=== PATIENT | male | born 1960 | race Caucasian/White ===

== ENCOUNTER 2022-03-28 16:37 | Inpatient (IN) | payer MEDICARE, OTHER ==
[2022-03-28] MEDS ORDERED: Morphine 4 MG/ML VIAL ONE (17:13)
[2022-03-28] MEDS ORDERED: Ondansetron PF 4 MG/2 ML Vial ONE (17:13)
[2022-03-28] MEDS ORDERED: Fentanyl 100 MCG/2 ML VIAL ONE (17:48)
[2022-03-28 17:54] LABS: #Basophils 0.1 thou/uL (0.0-0.2); #Eosinphils 0.2 thou/uL (0.0-0.7); #Lymphocytes 2.4 thou/uL (1.20-3.40); #Monocytes 1.3 thou/uL (0.11-0.59); #Neutrophils 7.9 thou/uL (1.40-6.50); %Basophils 0.7 % (0.0-1.0); %Eosinophils 1.3 % (0.0-10.0); %Lymphocytes 20.4 % (21.0-51.0); %Monocytes 10.6 % (0.0-10.0); Hemoglobin 14.4 g/dL (14.0-18.0); Mean Corpuscular HGB CONC 33.7 g/dL (32.0-36.0); Mean Corpuscular Hemoglobin 31.3 pg (27.0-31.0); Mean Corpuscular Volume 92.7 fl (78.0-98.0); Mean Platelet Volume 7.4 fL (7.4-10.4); Platelet Count 223 10x3/uL (130-400); RBC Distribution Width 11.5 % (11.5-14.5); Red Blood Cell (RBC) Count 4.59 mill/uL (4.70-6.10); White Blood Cell (WBC) Count 11.8 10x3/uL (4.8-10.8)
[2022-03-28 18:05] LABS: INR-International Normal Ratio 1.3; PTT 36.1 sec (22.9-36.1); Prothrombin Time 16.3 sec (12.0-14.7)
[2022-03-28 18:18] LABS: Bilirubin Negative (Negative); Blood, Urine Negative (Negative); Clarity Clear (Clear); Glucose, Urine (Dipstick) Greater than 1000 mg/dL (Negative); Ketone, Urine Negative (Negative); Leukocyte Negative Leu/uL (Negative); Nitrite Negative (Negative); Protein, Urine (Dipstick) Negative (Neg-Trace); Specific Gravity, Urine 1.023 (1.002-1.036); Urobilinogen Normal mg/dL (Less than 2)
[2022-03-28 18:18] LABS: ALT (SGPT) 13 U/L (8-55); AST (SGOT) 13 U/L (5-34); Acetaminophen Less than 10.0 mcg/mL (10.0-30.0); Albumin 3.9 g/dL (3.5-5.0); Alcohol Less than 10 mg/dL (Less than 10); Alkaline Phosphatase 84 U/L (40-110); Anion Gap 9 mmol/L (10-20); BUN (Urea Nitrogen) 20 mg/dL (8.4-25.7); Bilirubin, Total 1.6 mg/dL (0.2-1.2); Calc. Creatinine Clearance 0 mL/min (70-130); Calcium 8.7 mg/dL (7.8-10.44); Carbon Dioxide 29 mmol/L (22-29); Chloride 104 mmol/L (98-107); Estimated GFR 73; Globulin 2.7 g/dL (2.4-3.5); Glucose 253 mg/dL (70-105); Potassium 4.1 mmol/L (3.5-5.1); Protein, Total 6.6 g/dL (6.0-8.3); Salicylate Less than 8.0 mg/dL (15.0-30.0); Sodium 138 mmol/L (136-145)
[2022-03-28 18:27] LABS: Amphetamine Detected (NotDetected); Barbiturates Screen Not Detected (NotDetected); Benzodiazepine Screen Detected (NotDetected); Cocaine Metabolite Screen Not Detected (NotDetected); Methadone Not Detected (NotDetected); Methamphetamine Detected (NotDetected); Opiate Screen Detected (NotDetected); Oxycodone Screen Not Detected (NotDetected); Phencyclidine (PCP) Not Detected (NotDetected); THC/Cannabinoid Screen Detected (NotDetected); Tricyclic Screen Not Detected (NotDetected)
[2022-03-28] MEDS ORDERED: HYDROmorphone 0.5 MG/0.5 ML SYRINGE ONE (19:02)
[2022-03-28] MEDS ORDERED: Ondansetron ODT 4 MG TAB PO PRN (20:15)
[2022-03-28] MEDS ORDERED: Ondansetron PF 4 MG/2 ML Vial IVP PRN (20:15)
[2022-03-28] MEDS ORDERED: Dextrose 50% Abboject 50 ML SYRINGE SLOW IVP PRN (20:15)
[2022-03-28] MEDS ORDERED: hydrALAZINE 20 MG/ML VIAL SLOW IVP PRN (20:15)
[2022-03-28] MEDS ORDERED: Ipratropium/Albuterol 3 ML NEB NEB PRN (20:15)
[2022-03-28] MEDS ORDERED: Morphine 2 MG/ML VIAL SLOW IVP PRN (20:15)
[2022-03-28] MEDS ORDERED: Dextrose 5% in Water 1,000 ML IV PRN (20:15)
[2022-03-28] MEDS ORDERED: Cyclobenzaprine 10 MG TAB PO PRN (20:20)
[2022-03-28] MEDS ORDERED: Acetaminophen 500 MG TAB PO SCH (20:30)
[2022-03-28] MEDS ORDERED: traMADol HCl 50 MG TAB PO SCH (20:30)
[2022-03-28] MEDS ORDERED: Acetaminophen/Codeine 30-300mg Tablet PO PRN (20:31)
[2022-03-28] MEDS ORDERED: TETANUS, DIPHTHERIA TOX,ADULT (TDVAX) 0.5 ML VIAL IM ONE (21:00)
[2022-03-28 23:34] VITALS: BMI 31.4
[2022-03-29] MEDS: Gabapentin 100 MG CAP PO SCH ×2 (00:16→05:59)
[2022-03-29] MEDS: Famotidine 20 MG TAB PO SCH ×3 (00:17→20:47)
[2022-03-29] MEDS: Senokot S 8.6-50 MG TAB PO SCH ×3 (00:17→20:47)
[2022-03-29] MEDS: Morphine 4 MG/ML VIAL SLOW IVP PRN ×4 (00:19→20:48)
[2022-03-29] MEDS: Acetaminophen/Codeine 30-300mg Tablet PO SCH ×5 (00:26→23:53)
[2022-03-29] MEDS: Ibuprofen 800 MG TAB PO PRN ×2 (02:54→15:59)
[2022-03-29 06:40] LABS: #Basophils 0.1 thou/uL (0.0-0.2); #Eosinphils 0.4 thou/uL (0.0-0.7); #Lymphocytes 3.1 thou/uL (1.20-3.40); #Monocytes 1.4 thou/uL (0.11-0.59); #Neutrophils 7.2 thou/uL (1.40-6.50); %Basophils 0.9 % (0.0-1.0); %Eosinophils 3.2 % (0.0-10.0); %Lymphocytes 25.5 % (21.0-51.0); %Monocytes 11.2 % (0.0-10.0); %Neutrophils 59.3 % (42.0-75.0); Hemoglobin 13.7 g/dL (14.0-18.0); Mean Corpuscular HGB CONC 34.4 g/dL (32.0-36.0); Mean Corpuscular Hemoglobin 32.1 pg (27.0-31.0); Mean Corpuscular Volume 93.3 fl (78.0-98.0); Mean Platelet Volume 7.6 fL (7.4-10.4); Platelet Count 199 10x3/uL (130-400); RBC Distribution Width 11.5 % (11.5-14.5); Red Blood Cell (RBC) Count 4.26 mill/uL (4.70-6.10); White Blood Cell (WBC) Count 12.1 10x3/uL (4.8-10.8)
[2022-03-29 07:05] LABS: Anion Gap 9 mmol/L (10-20); BUN (Urea Nitrogen) 21 mg/dL (8.4-25.7); Calc. Creatinine Clearance 115 mL/min (70-130); Calcium 8.7 mg/dL (7.8-10.44); Carbon Dioxide 28 mmol/L (22-29); Chloride 105 mmol/L (98-107); Estimated GFR 91; Glucose 153 mg/dL (70-105); Phosphorus 3.9 mg/dL (2.3-4.7); Sodium 138 mmol/L (136-145)
[2022-03-29] MEDS: Tamsulosin HCl 0.4 MG CAP PO SCH (08:51)
[2022-03-29] MEDS: Digoxin 0.25 MG TAB PO SCH (08:51)
[2022-03-29] MEDS: Polyethylene Glycol 3350 17 GM Packet PO SCH (08:52)
[2022-03-29] MEDS: Insulin Regular 300 UNITS/3 ML VIAL SC PRN ×2 (12:27→15:55)
[2022-03-29] MEDS: Pregabalin 50 MG CAP PO SCH (20:47)
[2022-03-29] MEDS: Atorvastatin Calcium 40 MG TAB PO SCH (20:48)
[2022-03-30] MEDS: Morphine 4 MG/ML VIAL SLOW IVP PRN ×4 (04:41→22:34)
[2022-03-30] MEDS ORDERED: Sodium Chloride 0.9% 1,000 ML IV SCH (06:15)
[2022-03-30] MEDS: Acetaminophen/Codeine 30-300mg Tablet PO SCH ×4 (06:26→23:58)
[2022-03-30 06:51] LABS: #Basophils 0.1 thou/uL (0.0-0.2); #Eosinphils 0.5 thou/uL (0.0-0.7); #Lymphocytes 1.9 thou/uL (1.20-3.40); #Neutrophils 7.3 thou/uL (1.40-6.50); %Eosinophils 4.3 % (0.0-10.0); %Lymphocytes 17.3 % (21.0-51.0); %Monocytes 9.7 % (0.0-10.0); %Neutrophils 67.8 % (42.0-75.0); Hemoglobin 13.9 g/dL (14.0-18.0); Mean Corpuscular HGB CONC 34.1 g/dL (32.0-36.0); Mean Corpuscular Hemoglobin 31.9 pg (27.0-31.0); Mean Corpuscular Volume 93.5 fl (78.0-98.0); Mean Platelet Volume 7.2 fL (7.4-10.4); Platelet Count 174 10x3/uL (130-400); RBC Distribution Width 11.4 % (11.5-14.5); Red Blood Cell (RBC) Count 4.35 mill/uL (4.70-6.10); White Blood Cell (WBC) Count 10.8 10x3/uL (4.8-10.8)
[2022-03-30 07:14] LABS: Anion Gap 8 mmol/L (10-20); BUN (Urea Nitrogen) 18 mg/dL (8.4-25.7); Calc. Creatinine Clearance 118 mL/min (70-130); Calcium 8.8 mg/dL (7.8-10.44); Carbon Dioxide 31 mmol/L (22-29); Chloride 102 mmol/L (98-107); Estimated GFR 95; Glucose 189 mg/dL (70-105); Magnesium 1.9 mg/dL (1.6-2.6); Phosphorus 3.1 mg/dL (2.3-4.7); Potassium 4.2 mmol/L (3.5-5.1); Sodium 137 mmol/L (136-145)
[2022-03-30] MEDS ORDERED: PHOS-NAK 1 PKT PACK PO SCH (08:15)
[2022-03-30] MEDS: Digoxin 0.25 MG TAB PO SCH (09:06)
[2022-03-30] MEDS: Famotidine 20 MG TAB PO SCH ×2 (09:06→20:35)
[2022-03-30] MEDS: Pregabalin 50 MG CAP PO SCH ×2 (09:07→20:34)
[2022-03-30] MEDS: Tamsulosin HCl 0.4 MG CAP PO SCH (09:07)
[2022-03-30] MEDS: Polyethylene Glycol 3350 17 GM Packet PO SCH (09:08)
[2022-03-30] MEDS: Senokot S 8.6-50 MG TAB PO SCH ×2 (09:08→20:35)
[2022-03-30] MEDS ORDERED: Fentanyl 250 MCG/5 ML VIAL ONE (12:46)
[2022-03-30] MEDS ORDERED: Phenylephrine 10 MG/ML VIAL ONE (12:46)
[2022-03-30] MEDS ORDERED: CEFAZOLIN 2 GM in Sodium Chloride 0.9% 100 ML IVPB SCH (13:00)
[2022-03-30] MEDS ORDERED: Sodium Chloride 0.9% 100 ML ONE (13:29)
[2022-03-30] MEDS ORDERED: CEFAZOLIN 2 GM VIAL ONE (13:29)
[2022-03-30] MEDS ORDERED: Fentanyl 100 MCG/2 ML VIAL ONE ×3 (13:42→16:18)
[2022-03-30] MEDS ORDERED: HYDROmorphone 0.5 MG/0.5 ML SYRINGE ONE (13:49)
[2022-03-30] MEDS ORDERED: Ketamine 50 MG/ML (10ML VIAL) ONE (13:49)
[2022-03-30] MEDS ORDERED: Rocuronium Bromide 10 MG/ML (10ML VIAL) ONE (14:18)
[2022-03-30] MEDS ORDERED: Ketorolac Tromethamine 30 MG/ML VIAL ONE (14:18)
[2022-03-30] MEDS ORDERED: Lidocaine 1% PF 5 ML VIAL ONE (14:18)
[2022-03-30] MEDS ORDERED: Glycopyrrolate 0.2 MG/ML 5 ML SYRINGE ONE (14:18)
[2022-03-30] MEDS ORDERED: NEOSTIGMINE 3 MG/3 ML SYR 3 MG/3 ML SYRINGE ONE (14:18)
[2022-03-30] MEDS ORDERED: Dexamethasone 20 MG/5 ML VIAL ONE (14:18)
[2022-03-30] MEDS ORDERED: PROPOFOL 200 MG/20 ML VIAL ONE (14:18)
[2022-03-30] MEDS ORDERED: Ondansetron PF 4 MG/2 ML Vial ONE (14:18)
[2022-03-30] MEDS ORDERED: Promethazine HCl 25 MG/ML VIAL IM PRN (15:21)
[2022-03-30] MEDS ORDERED: HYDROmorphone 2 MG/ML VIAL SLOW IVP PRN (15:21)
[2022-03-30] MEDS ORDERED: PACU-Morphine 4MG/ML VIAL SLOW IVP PRN (15:21)
[2022-03-30] MEDS ORDERED: Ondansetron HCl/PF 4 MG/2 ML Vial IVP PRN (15:21)
[2022-03-30] MEDS: Atorvastatin Calcium 40 MG TAB PO SCH (20:35)
[2022-03-30] MEDS: Insulin Regular 300 UNITS/3 ML VIAL SC PRN (22:30)
[2022-03-31] MEDS: Morphine 4 MG/ML VIAL SLOW IVP PRN ×7 (03:03→21:10)
[2022-03-31] MEDS: Acetaminophen/Codeine 30-300mg Tablet PO SCH ×4 (05:33→23:41)
[2022-03-31 05:56] LABS: #Basophils 0.1 thou/uL (0.0-0.2); #Eosinphils 0.5 thou/uL (0.0-0.7); #Lymphocytes 2.5 thou/uL (1.20-3.40); #Monocytes 1.3 thou/uL (0.11-0.59); #Neutrophils 7.6 thou/uL (1.40-6.50); %Basophils 0.5 % (0.0-1.0); %Eosinophils 4.3 % (0.0-10.0); %Lymphocytes 20.8 % (21.0-51.0); %Monocytes 11.1 % (0.0-10.0); %Neutrophils 63.3 % (42.0-75.0); Hemoglobin 12.7 g/dL (14.0-18.0); Mean Corpuscular Hemoglobin 31.7 pg (27.0-31.0); Mean Corpuscular Volume 93.1 fl (78.0-98.0); Mean Platelet Volume 7.4 fL (7.4-10.4); Platelet Count 175 10x3/uL (130-400); RBC Distribution Width 11.3 % (11.5-14.5); Red Blood Cell (RBC) Count 4.02 mill/uL (4.70-6.10)
[2022-03-31 06:17] LABS: Anion Gap 10 mmol/L (10-20); BUN (Urea Nitrogen) 11 mg/dL (8.4-25.7); Calc. Creatinine Clearance 145 mL/min (70-130); Calcium 8.3 mg/dL (7.8-10.44); Carbon Dioxide 27 mmol/L (22-29); Chloride 102 mmol/L (98-107); Estimated GFR 104; Glucose 181 mg/dL (70-105); Magnesium 1.8 mg/dL (1.6-2.6); Phosphorus 2.8 mg/dL (2.3-4.7); Potassium 4.1 mmol/L (3.5-5.1); Sodium 135 mmol/L (136-145)
[2022-03-31] MEDS: Insulin Regular 300 UNITS/3 ML VIAL SC PRN ×3 (06:46→17:51)
[2022-03-31] MEDS: Ibuprofen 800 MG TAB PO PRN (07:32)
[2022-03-31] MEDS ORDERED: Magnesium 2 GM/50 ML(in water) 2 GM in Premix Bag 1 BAG IVPB SCH (09:15)
[2022-03-31] MEDS ORDERED: PHOS-NAK 1 PKT PACK PO SCH (09:15)
[2022-03-31] MEDS: Digoxin 0.25 MG TAB PO SCH (09:51)
[2022-03-31] MEDS: Pregabalin 50 MG CAP PO SCH ×2 (09:51→21:11)
[2022-03-31] MEDS: Famotidine 20 MG TAB PO SCH ×2 (09:52→21:11)
[2022-03-31] MEDS: Tamsulosin HCl 0.4 MG CAP PO SCH (09:52)
[2022-03-31] MEDS: Senokot S 8.6-50 MG TAB PO SCH ×2 (09:52→21:10)
[2022-03-31] MEDS: Polyethylene Glycol 3350 17 GM Packet PO SCH (09:53)
[2022-03-31] MEDS: Atorvastatin Calcium 40 MG TAB PO SCH (21:11)
[2022-04-01] MEDS: Morphine 4 MG/ML VIAL SLOW IVP PRN ×3 (01:43→21:29)
[2022-04-01] MEDS: Acetaminophen/Codeine 30-300mg Tablet PO SCH ×3 (05:18→17:20)
[2022-04-01] MEDS: Insulin Regular 300 UNITS/3 ML VIAL SC PRN ×2 (05:52→12:07)
[2022-04-01 06:12] LABS: #Basophils 0.1 thou/uL (0.0-0.2); #Eosinphils 0.6 thou/uL (0.0-0.7); #Lymphocytes 2.2 thou/uL (1.20-3.40); #Monocytes 1.3 thou/uL (0.11-0.59); #Neutrophils 6.4 thou/uL (1.40-6.50); %Basophils 0.8 % (0.0-1.0); %Eosinophils 5.9 % (0.0-10.0); %Monocytes 12.3 % (0.0-10.0); %Neutrophils 60.1 % (42.0-75.0); Hemoglobin 12.2 g/dL (14.0-18.0); Mean Corpuscular HGB CONC 34.9 g/dL (32.0-36.0); Mean Corpuscular Volume 91.6 fl (78.0-98.0); Mean Platelet Volume 7.6 fL (7.4-10.4); Platelet Count 181 10x3/uL (130-400); RBC Distribution Width 11.2 % (11.5-14.5); White Blood Cell (WBC) Count 10.6 10x3/uL (4.8-10.8)
[2022-04-01 06:33] LABS: Anion Gap 12 mmol/L (10-20); BUN (Urea Nitrogen) 9 mg/dL (8.4-25.7); Calc. Creatinine Clearance 160 mL/min (70-130); Calcium 8.4 mg/dL (7.8-10.44); Carbon Dioxide 24 mmol/L (22-29); Chloride 100 mmol/L (98-107); Estimated GFR 107; Glucose 183 mg/dL (70-105); Magnesium 1.9 mg/dL (1.6-2.6); Phosphorus 2.8 mg/dL (2.3-4.7); Potassium 4.2 mmol/L (3.5-5.1); Sodium 132 mmol/L (136-145)
[2022-04-01] MEDS ORDERED: PHOS-NAK 1 PKT PACK PO SCH (08:45)
[2022-04-01] MEDS: Senokot S 8.6-50 MG TAB PO SCH ×2 (09:02→21:24)
[2022-04-01] MEDS: Tamsulosin HCl 0.4 MG CAP PO SCH (09:02)
[2022-04-01] MEDS: Pregabalin 50 MG CAP PO SCH ×2 (09:02→21:25)
[2022-04-01] MEDS: Aspirin 81 mg Enteric Coated Tablet PO SCH (09:02)
[2022-04-01] MEDS: Famotidine 20 MG TAB PO SCH ×2 (09:02→21:26)
[2022-04-01] MEDS: Clopidogrel Bisulfate 75 MG TAB PO SCH (09:03)
[2022-04-01] MEDS: Spironolactone 25 MG TAB PO SCH (09:12)
[2022-04-01] MEDS: Digoxin 0.25 MG TAB PO SCH (09:12)
[2022-04-01] MEDS: Apixaban 5 MG TAB PO SCH ×2 (09:12→21:26)
[2022-04-01] MEDS: Polyethylene Glycol 3350 17 GM Packet PO SCH (09:13)
[2022-04-01] MEDS: Atorvastatin Calcium 40 MG TAB PO SCH (21:25)
[2022-04-02] MEDS: Acetaminophen/Codeine 30-300mg Tablet PO SCH ×4 (00:14→17:41)
[2022-04-02] MEDS: Morphine 4 MG/ML VIAL SLOW IVP PRN ×4 (05:46→21:18)
[2022-04-02] MEDS: Insulin Regular 300 UNITS/3 ML VIAL SC PRN ×3 (06:00→15:33)
[2022-04-02 06:32] LABS: #Basophils 0.1 thou/uL (0.0-0.2); #Eosinphils 0.6 thou/uL (0.0-0.7); #Lymphocytes 2.2 thou/uL (1.20-3.40); #Monocytes 1.3 thou/uL (0.11-0.59); #Neutrophils 6.1 thou/uL (1.40-6.50); %Basophils 0.7 % (0.0-1.0); %Eosinophils 5.5 % (0.0-10.0); %Lymphocytes 21.4 % (21.0-51.0); %Monocytes 12.4 % (0.0-10.0); Hemoglobin 12.5 g/dL (14.0-18.0); Mean Corpuscular HGB CONC 34.6 g/dL (32.0-36.0); Mean Corpuscular Hemoglobin 31.9 pg (27.0-31.0); Mean Corpuscular Volume 92.1 fl (78.0-98.0); Mean Platelet Volume 7.4 fL (7.4-10.4); Platelet Count 215 10x3/uL (130-400); RBC Distribution Width 11.3 % (11.5-14.5); Red Blood Cell (RBC) Count 3.91 mill/uL (4.70-6.10); White Blood Cell (WBC) Count 10.1 10x3/uL (4.8-10.8)
[2022-04-02 06:57] LABS: Anion Gap 12 mmol/L (10-20); BUN (Urea Nitrogen) 11 mg/dL (8.4-25.7); Calc. Creatinine Clearance 155 mL/min (70-130); Calcium 8.7 mg/dL (7.8-10.44); Carbon Dioxide 25 mmol/L (22-29); Chloride 102 mmol/L (98-107); Estimated GFR 106; Glucose 178 mg/dL (70-105); Magnesium 1.9 mg/dL (1.6-2.6); Phosphorus 2.9 mg/dL (2.3-4.7); Sodium 135 mmol/L (136-145)
[2022-04-02] MEDS ORDERED: PHOS-NAK 1 PKT PACK PO SCH (08:15)
[2022-04-02] MEDS: Bumetanide 1 MG TAB PO SCH ×2 (09:07→12:10)
[2022-04-02] MEDS: Famotidine 20 MG TAB PO SCH ×2 (09:09→21:15)
[2022-04-02] MEDS: Digoxin 0.25 MG TAB PO SCH (09:09)
[2022-04-02] MEDS: Clopidogrel Bisulfate 75 MG TAB PO SCH (09:09)
[2022-04-02] MEDS: Apixaban 5 MG TAB PO SCH ×2 (09:09→21:15)
[2022-04-02] MEDS: Polyethylene Glycol 3350 17 GM Packet PO SCH (09:09)
[2022-04-02] MEDS: Aspirin 81 mg Enteric Coated Tablet PO SCH (09:09)
[2022-04-02] MEDS: Senokot S 8.6-50 MG TAB PO SCH ×2 (09:09→21:14)
[2022-04-02] MEDS: Pregabalin 50 MG CAP PO SCH ×2 (09:10→21:15)
[2022-04-02] MEDS: Spironolactone 25 MG TAB PO SCH (09:10)
[2022-04-02] MEDS: Tamsulosin HCl 0.4 MG CAP PO SCH (09:10)
[2022-04-02] MEDS: Nicotine 14 MG PATCH TD SCH (12:03)
[2022-04-02] MEDS: Atorvastatin Calcium 40 MG TAB PO SCH (21:15)
[2022-04-03] MEDS: Acetaminophen/Codeine 30-300mg Tablet PO SCH ×5 (00:14→23:34)
[2022-04-03] MEDS ORDERED: ALPRAZolam 0.5 MG TAB PO PRN (02:53)
[2022-04-03] MEDS: Morphine 4 MG/ML VIAL SLOW IVP PRN (02:59)
[2022-04-03] MEDS: Clopidogrel Bisulfate 75 MG TAB PO SCH (08:28)
[2022-04-03] MEDS: Pregabalin 50 MG CAP PO SCH ×2 (08:28→21:06)
[2022-04-03] MEDS: Digoxin 0.25 MG TAB PO SCH (08:28)
[2022-04-03] MEDS: Bumetanide 1 MG TAB PO SCH ×2 (08:28→13:46)
[2022-04-03] MEDS: Aspirin 81 mg Enteric Coated Tablet PO SCH (08:28)
[2022-04-03] MEDS: Tamsulosin HCl 0.4 MG CAP PO SCH (08:28)
[2022-04-03] MEDS: Famotidine 20 MG TAB PO SCH ×2 (08:28→21:06)
[2022-04-03] MEDS: Spironolactone 25 MG TAB PO SCH (08:28)
[2022-04-03] MEDS: Apixaban 5 MG TAB PO SCH ×2 (08:28→21:06)
[2022-04-03] MEDS: Polyethylene Glycol 3350 17 GM Packet PO SCH (08:30)
[2022-04-03] MEDS: Senokot S 8.6-50 MG TAB PO SCH ×2 (08:30→21:06)
[2022-04-03] MEDS: Nicotine 14 MG PATCH TD SCH (11:48)
[2022-04-03] MEDS: Insulin Regular 300 UNITS/3 ML VIAL SC PRN ×2 (12:12→16:35)
[2022-04-03] MEDS: ALPRAZolam 0.5 MG TAB PO PRN ×2 (12:15→21:05)
[2022-04-03] MEDS: Atorvastatin Calcium 40 MG TAB PO SCH (21:06)
[2022-04-04] MEDS: Acetaminophen/Codeine 30-300mg Tablet PO SCH ×4 (06:02→23:57)
[2022-04-04] MEDS: ALPRAZolam 0.5 MG TAB PO PRN ×3 (06:09→23:57)
[2022-04-04] MEDS: Insulin Regular 300 UNITS/3 ML VIAL SC PRN ×3 (06:33→15:18)
[2022-04-04] MEDS: Bumetanide 1 MG TAB PO SCH ×2 (08:21→15:14)
[2022-04-04] MEDS: Spironolactone 25 MG TAB PO SCH (08:21)
[2022-04-04] MEDS: Digoxin 0.25 MG TAB PO SCH (08:21)
[2022-04-04] MEDS: Pregabalin 50 MG CAP PO SCH ×2 (08:21→20:40)
[2022-04-04] MEDS: Polyethylene Glycol 3350 17 GM Packet PO SCH (08:22)
[2022-04-04] MEDS: Senokot S 8.6-50 MG TAB PO SCH ×2 (08:22→20:40)
[2022-04-04] MEDS: Clopidogrel Bisulfate 75 MG TAB PO SCH (08:22)
[2022-04-04] MEDS: Aspirin 81 mg Enteric Coated Tablet PO SCH (08:22)
[2022-04-04] MEDS: Tamsulosin HCl 0.4 MG CAP PO SCH (08:22)
[2022-04-04] MEDS: Apixaban 5 MG TAB PO SCH ×2 (08:22→20:40)
[2022-04-04] MEDS: Famotidine 20 MG TAB PO SCH ×2 (08:22→20:40)
[2022-04-04] MEDS ORDERED: Ibuprofen 200 MG TAB PO PRN (08:43)
[2022-04-04] MEDS: Nicotine 14 MG PATCH TD SCH (11:57)
[2022-04-04] MEDS ORDERED: Acetaminophen 325 MG TAB PO SCH ×2 (16:00→18:00)
[2022-04-04] MEDS: Acetaminophen 325 MG TAB PO SCH (20:39)
[2022-04-04] MEDS: Atorvastatin Calcium 40 MG TAB PO SCH (20:40)
[2022-04-05] MEDS: Acetaminophen 325 MG TAB PO SCH ×4 (03:52→19:37)
[2022-04-05] MEDS: Acetaminophen/Codeine 30-300mg Tablet PO SCH ×4 (05:57→23:28)
[2022-04-05] MEDS: ALPRAZolam 0.5 MG TAB PO PRN ×3 (05:58→19:39)
[2022-04-05] MEDS: Insulin Regular 300 UNITS/3 ML VIAL SC PRN ×3 (06:28→17:02)
[2022-04-05] MEDS: Senokot S 8.6-50 MG TAB PO SCH ×2 (08:36→19:37)
[2022-04-05] MEDS: Famotidine 20 MG TAB PO SCH ×2 (08:36→19:37)
[2022-04-05] MEDS: Clopidogrel Bisulfate 75 MG TAB PO SCH (08:36)
[2022-04-05] MEDS: Digoxin 0.25 MG TAB PO SCH (08:37)
[2022-04-05] MEDS: Bumetanide 1 MG TAB PO SCH ×2 (08:37→14:10)
[2022-04-05] MEDS: Apixaban 5 MG TAB PO SCH ×2 (08:37→19:37)
[2022-04-05] MEDS: Spironolactone 25 MG TAB PO SCH (08:37)
[2022-04-05] MEDS: Tamsulosin HCl 0.4 MG CAP PO SCH (08:37)
[2022-04-05] MEDS: Pregabalin 50 MG CAP PO SCH ×2 (08:37→19:36)
[2022-04-05] MEDS: Aspirin 81 mg Enteric Coated Tablet PO SCH (08:37)
[2022-04-05] MEDS: Polyethylene Glycol 3350 17 GM Packet PO SCH (08:38)
[2022-04-05] MEDS: Nicotine 14 MG PATCH TD SCH (11:41)
[2022-04-05] MEDS: Atorvastatin Calcium 40 MG TAB PO SCH (19:37)
[2022-04-06] MEDS: Acetaminophen 325 MG TAB PO SCH ×4 (03:30→21:20)
[2022-04-06] MEDS: ALPRAZolam 0.5 MG TAB PO PRN ×3 (04:28→23:19)
[2022-04-06] MEDS: Acetaminophen/Codeine 30-300mg Tablet PO SCH ×4 (05:40→23:19)
[2022-04-06] MEDS: Insulin Regular 300 UNITS/3 ML VIAL SC PRN ×4 (05:42→23:20)
[2022-04-06] MEDS: Digoxin 0.25 MG TAB PO SCH (08:31)
[2022-04-06] MEDS: Tamsulosin HCl 0.4 MG CAP PO SCH (08:31)
[2022-04-06] MEDS: Clopidogrel Bisulfate 75 MG TAB PO SCH (08:31)
[2022-04-06] MEDS: Senokot S 8.6-50 MG TAB PO SCH ×2 (08:31→21:20)
[2022-04-06] MEDS: Aspirin 81 mg Enteric Coated Tablet PO SCH (08:31)
[2022-04-06] MEDS: Spironolactone 25 MG TAB PO SCH (08:31)
[2022-04-06] MEDS: Bumetanide 1 MG TAB PO SCH ×2 (08:32→13:03)
[2022-04-06] MEDS: Apixaban 5 MG TAB PO SCH ×2 (08:32→21:21)
[2022-04-06] MEDS: Pregabalin 50 MG CAP PO SCH ×2 (08:32→21:21)
[2022-04-06] MEDS: Polyethylene Glycol 3350 17 GM Packet PO SCH (08:36)
[2022-04-06] MEDS: Nicotine 14 MG PATCH TD SCH (11:36)
[2022-04-06] MEDS: Atorvastatin Calcium 40 MG TAB PO SCH (21:20)
[2022-04-07] MEDS: Acetaminophen 325 MG TAB PO SCH ×3 (03:00→14:54)
[2022-04-07] MEDS: Acetaminophen/Codeine 30-300mg Tablet PO SCH ×3 (05:14→17:31)
[2022-04-07] MEDS: Insulin Regular 300 UNITS/3 ML VIAL SC PRN ×3 (06:15→16:26)
[2022-04-07] MEDS: ALPRAZolam 0.5 MG TAB PO PRN ×2 (06:17→13:07)
[2022-04-07] MEDS: Digoxin 0.25 MG TAB PO SCH (08:58)
[2022-04-07] MEDS: Spironolactone 25 MG TAB PO SCH (08:58)
[2022-04-07] MEDS: Bumetanide 1 MG TAB PO SCH ×2 (08:58→13:07)
[2022-04-07] MEDS: Clopidogrel Bisulfate 75 MG TAB PO SCH (08:58)
[2022-04-07] MEDS: Apixaban 5 MG TAB PO SCH (08:59)
[2022-04-07] MEDS: Pregabalin 50 MG CAP PO SCH (08:59)
[2022-04-07] MEDS: Aspirin 81 mg Enteric Coated Tablet PO SCH (08:59)
[2022-04-07] MEDS: Senokot S 8.6-50 MG TAB PO SCH (08:59)
[2022-04-07] MEDS: Tamsulosin HCl 0.4 MG CAP PO SCH (08:59)
[2022-04-07] MEDS: Polyethylene Glycol 3350 17 GM Packet PO SCH (09:00)
[2022-04-07] MEDS: Nicotine 14 MG PATCH TD SCH (11:27)
[2022-04-07 14:39] LABS: #Basophils 0.2 thou/uL (0.0-0.2); #Eosinphils 0.2 thou/uL (0.0-0.7); #Lymphocytes 2.4 thou/uL (1.20-3.40); #Monocytes 1.3 thou/uL (0.11-0.59); #Neutrophils 9.6 thou/uL (1.40-6.50); %Basophils 1.2 % (0.0-1.0); %Eosinophils 1.6 % (0.0-10.0); %Lymphocytes 17.6 % (21.0-51.0); %Monocytes 9.4 % (0.0-10.0); %Neutrophils 70.1 % (42.0-75.0); Hemoglobin 13.9 g/dL (14.0-18.0); Mean Corpuscular HGB CONC 33.5 g/dL (32.0-36.0); Mean Corpuscular Hemoglobin 31.2 pg (27.0-31.0); Mean Platelet Volume 6.7 fL (7.4-10.4); Platelet Count 403 10x3/uL (130-400); RBC Distribution Width 11.2 % (11.5-14.5); Red Blood Cell (RBC) Count 4.46 mill/uL (4.70-6.10); White Blood Cell (WBC) Count 13.6 10x3/uL (4.8-10.8)
[2022-04-07 14:40] VITALS: TEMP 97.9
[2022-04-07] MEDS ORDERED: Aspirin Chewable 81 MG TAB ONE (14:52)
[2022-04-07 14:57] LABS: Troponin I Less than 0.010 ng/mL (< 0.028)
[2022-04-07 16:27] LABS: Anion Gap 17 mmol/L (10-20); BUN (Urea Nitrogen) 18 mg/dL (8.4-25.7); Calc. Creatinine Clearance 121 mL/min (70-130); Calcium 9.3 mg/dL (7.8-10.44); Carbon Dioxide 25 mmol/L (22-29); Chloride 92 mmol/L (98-107); Estimated GFR 97; Glucose 285 mg/dL (70-105); Potassium 3.8 mmol/L (3.5-5.1); Sodium 130 mmol/L (136-145)
[2022-04-07] MEDS: Ipratropium/Albuterol 3 ML NEB NEB SCH ×2 (16:31→19:16)
[2022-04-07 16:51] LABS: Bacteria/HPF None Seen HPF (None Seen); Bilirubin Negative (Negative); Blood, Urine Negative (Negative); CAUTI Indications for Culture Dysuria,urgency,freq; Clarity Clear (Clear); Glucose, Urine (Dipstick) 500 mg/dL (Negative); Ketone, Urine Negative (Negative); Leukocyte Negative Leu/uL (Negative); Nitrite Negative (Negative); Protein, Urine (Dipstick) Negative (Neg-Trace); RBC/HPF 0-3 HPF (0-3); Specific Gravity, Urine 1.013 (1.002-1.036); Squamous Epithelial None Seen HPF (0-3); WBC/HPF 0-3 HPF (0-3)
[2022-04-07 16:54] LABS: Urine Culture Reflex No No
[2022-04-07] MEDS: Aspirin Chewable 81 MG TAB PO SCH ×2 (16:59→17:01)
[2022-04-07 17:01] VITALS: BP 114/72
[2022-04-08] MEDS ORDERED: Aspirin Chewable 81 MG TAB PO SCH (09:00)
== END 2022-04-07 20:05 | disposition swing bed (61) | DRG 481 ==
LOC: ERS 16:37 → ERHOLD 20:21 → SURG A 22:20
PROVIDERS: ADMIT Orthopaedic Surgery; ATTEND Surgery
PROC: 0QS604Z Reposition Right Upper Femur with Internal Fixation Device, Open Approach (ICD-10-PCS; principal; 2022-03-30)
DX: S72.141A Displaced intertrochanteric fracture of right femur, initial encounter for closed fracture (principal); F11.20 Opioid dependence, uncomplicated; W10.9XXA Fall (on) (from) unspecified stairs and steps, initial encounter; J44.9 Chronic obstructive pulmonary disease, unspecified; I25.10 Atherosclerotic heart disease of native coronary artery without angina pectoris; G89.29 Other chronic pain; M54.9 Dorsalgia, unspecified; E11.9 Type 2 diabetes mellitus without complications; E78.5 Hyperlipidemia, unspecified; I10 Essential (primary) hypertension; F12.10 Cannabis abuse, uncomplicated; F13.10 Sedative, hypnotic or anxiolytic abuse, uncomplicated; F15.10 Other stimulant abuse, uncomplicated; I48.91 Unspecified atrial fibrillation; R07.89 Other chest pain; Z86.718 Personal history of other venous thrombosis and embolism; Z95.1 Presence of aortocoronary bypass graft; Z86.73 Personal history of transient ischemic attack (TIA), and cerebral infarction without residual deficits; Z87.442 Personal history of urinary calculi; Z98.890 Other specified postprocedural states; Z87.891 Personal history of nicotine dependence; Z88.6 Allergy status to analgesic agent; Z88.8 Allergy status to other drugs, medicaments and biological substances; Z79.899 Other long term (current) drug therapy; Z79.01 Long term (current) use of anticoagulants; Z79.82 Long term (current) use of aspirin; Z79.02 Long term (current) use of antithrombotics/antiplatelets; Z79.4 Long term (current) use of insulin; I25.2 Old myocardial infarction
CPT/HCPCS: 36415; 36416; 70450; 71045; 72125; 72170; 80048; 80053; 80306; 80307; 81001; 81003; 83735; 84100; 84484; 85025; 85610; 85730; 86850; 86900; 86901; 87811; 93005; 93010; 93306; 94640; 96374; 96375; 96376; C1713; G0390; J1100; J1170; J1815; J1885; J2270; J2370; J2405; J2704; J3010; J3475; J3490; J7050; J7620; U0003; U0005

== ENCOUNTER 2022-08-29 19:03 | Inpatient (IN) | payer MEDICARE ==
[~2022-08-29 19:03] MED LIST: Iopamidol-370 76% 500 ML MDV (1 ML CHARGE) ONE
[2022-08-29 19:14] LABS: #Basophils 0.2 thou/uL (0.0-0.2); #Eosinphils 0.2 thou/uL (0.0-0.7); #Neutrophils 8.3 thou/uL (1.40-6.50); %Basophils 1.2 % (0.0-1.0); %Eosinophils 1.4 % (0.0-10.0); %Lymphocytes 23.3 % (21.0-51.0); %Monocytes 7.6 % (0.0-10.0); %Neutrophils 65.9 % (42.0-75.0); Hemoglobin 13.7 g/dL (14.0-18.0); Mean Corpuscular HGB CONC 33.5 g/dL (32.0-36.0); Mean Corpuscular Hemoglobin 30.4 pg (27.0-31.0); Mean Corpuscular Volume 90.9 fl (78.0-98.0); Mean Platelet Volume 9.1 fL (7.4-10.4); Platelet Count 295 10x3/uL (130-400); RBC Distribution Width 12.5 % (11.5-14.5); White Blood Cell (WBC) Count 12.6 10x3/uL (4.8-10.8)
[2022-08-29 19:24] LABS: PTT 33.5 sec (22.9-36.1)
[2022-08-29 19:26] LABS: INR-International Normal Ratio 1.2
[2022-08-29 19:29] LABS: ALT (SGPT) 20 U/L (8-55); AST (SGOT) 15 U/L (5-34); Albumin 4.2 g/dL (3.5-5.0); Alkaline Phosphatase 84 U/L (40-110); Anion Gap 15 mmol/L (10-20); BUN (Urea Nitrogen) 21 mg/dL (8.4-25.7); Bilirubin, Total 1.4 mg/dL (0.2-1.2); CK (CPK) 59 U/L (30-200); Calc. Creatinine Clearance 0 mL/min (70-130); Calcium 9.8 mg/dL (7.8-10.44); Carbon Dioxide 22 mmol/L (22-29); Chloride 106 mmol/L (98-107); Estimated GFR 66; Glucose 120 mg/dL (70-105); Potassium 4.1 mmol/L (3.5-5.1); Protein, Total 7.2 g/dL (6.0-8.3); Sodium 139 mmol/L (136-145)
[2022-08-29] MEDS ORDERED: Morphine 4 MG/ML VIAL ONE (20:00)
[2022-08-29] MEDS ORDERED: Sodium Chloride 0.9% 1,000 ML IV SCH (22:30)
[2022-08-29 23:17] LABS: Troponin I 0.012 ng/mL (< 0.028)
[2022-08-30] MEDS ORDERED: Ketorolac Tromethamine 30 MG/ML VIAL IVP SCH (00:15)
[2022-08-30] MEDS ORDERED: Morphine 2 MG/ML VIAL SLOW IVP SCH (00:30)
[2022-08-30] MEDS ORDERED: diphenhydrAMINE 25 MG CAP PO PRN (00:50)
[2022-08-30] MEDS ORDERED: Dextrose 50% Abboject 50 ML SYRINGE SLOW IVP PRN (00:51)
[2022-08-30] MEDS ORDERED: HYDROcodone/Acetaminophen 5/325 mg Tablet PO PRN (00:51)
[2022-08-30] MEDS ORDERED: Dextrose 5% in Water 1,000 ML IV PRN (00:51)
[2022-08-30] MEDS ORDERED: HumaLOG 300 UNITS/3 ML VIAL SC PRN ×2 (00:51)
[2022-08-30] MEDS ORDERED: Glucagon 1 MG/ML KIT IM PRN (00:51)
[2022-08-30] MEDS ORDERED: Ondansetron PF 4 MG/2 ML Vial IVP PRN (00:51)
[2022-08-30] MEDS ORDERED: Ondansetron ODT 4 MG TAB PO PRN (00:51)
[2022-08-30 01:55] LABS: Troponin I Less than 0.010 ng/mL (< 0.028)
[2022-08-30 02:20] LABS: Amphetamine Not Detected (NotDetected); Barbiturates Screen Not Detected (NotDetected); Benzodiazepine Screen Detected (NotDetected); Cocaine Metabolite Screen Not Detected (NotDetected); Methadone Not Detected (NotDetected); Methamphetamine Not Detected (NotDetected); Opiate Screen Detected (NotDetected); Oxycodone Screen Not Detected (NotDetected); Phencyclidine (PCP) Not Detected (NotDetected); THC/Cannabinoid Screen Not Detected (NotDetected); Tricyclic Screen Not Detected (NotDetected)
[2022-08-30 02:25] LABS: Bacteria/HPF None Seen HPF (None Seen); Bilirubin Negative (Negative); Blood, Urine Negative (Negative); CAUTI Indications for Culture Alt mental st,lethar; Clarity Clear (Clear); Glucose, Urine (Dipstick) Normal (Negative); Ketone, Urine Negative (Negative); Leukocyte Negative Leu/uL (Negative); Nitrite Negative (Negative); Protein, Urine (Dipstick) Negative (Neg-Trace); RBC/HPF 0-3 HPF (0-3); Specific Gravity, Urine 1.047 (1.002-1.036); Squamous Epithelial None Seen HPF (0-3); Urobilinogen Normal mg/dL (Less than 2); WBC/HPF None Seen HPF (0-3); pH, Urine 6.5 (5.0-9.0)
[2022-08-30 02:31] LABS: Urine Culture Reflex No No
[2022-08-30] MEDS ORDERED: traMADol HCl 50 MG TAB PO PRN (04:01)
[2022-08-30 05:15] LABS: #Basophils 0.1 thou/uL (0.0-0.2); #Eosinphils 0.3 thou/uL (0.0-0.7); #Monocytes 0.9 thou/uL (0.11-0.59); #Neutrophils 5.6 thou/uL (1.40-6.50); %Basophils 1.3 % (0.0-1.0); %Eosinophils 2.8 % (0.0-10.0); %Lymphocytes 34.1 % (21.0-51.0); %Monocytes 8.5 % (0.0-10.0); %Neutrophils 52.9 % (42.0-75.0); Hemoglobin 12.7 g/dL (14.0-18.0); Mean Corpuscular HGB CONC 33.7 g/dL (32.0-36.0); Mean Corpuscular Hemoglobin 30.5 pg (27.0-31.0); Mean Corpuscular Volume 90.4 fl (78.0-98.0); Mean Platelet Volume 9.2 fL (7.4-10.4); Platelet Count 258 10x3/uL (130-400); RBC Distribution Width 12.6 % (11.5-14.5); Red Blood Cell (RBC) Count 4.17 mill/uL (4.70-6.10); White Blood Cell (WBC) Count 10.5 10x3/uL (4.8-10.8)
[2022-08-30 05:38] LABS: Alcohol Less than 10.0 mg/dL (Less than 10); Anion Gap 10 mmol/L (10-20); BUN (Urea Nitrogen) 20 mg/dL (8.4-25.7); Calc. Creatinine Clearance 96 mL/min (70-130); Carbon Dioxide 27 mmol/L (22-29); Chloride 105 mmol/L (98-107); Estimated GFR 74; Glucose 140 mg/dL (70-105); Potassium 3.7 mmol/L (3.5-5.1); Sodium 138 mmol/L (136-145)
[2022-08-30] MEDS: Acetaminophen 325 MG TAB PO PRN (06:24)
[2022-08-30] MEDS: Aspirin 81 mg Enteric Coated Tablet PO SCH (08:34)
[2022-08-30] MEDS: Atorvastatin Calcium 40 MG TAB PO SCH (08:34)
[2022-08-30] MEDS: Apixaban 5 MG TAB PO SCH ×2 (08:34→21:49)
[2022-08-30] MEDS ORDERED: Indomethacin 75 mg SR Capsule PO SCH (09:00)
[2022-08-30] MEDS ORDERED: Digoxin 0.25 MG TAB PO SCH (09:00)
[2022-08-30] MEDS: HYDROcodone/Acetaminophen 5/325 mg Tablet PO PRN ×2 (13:11→19:05)
[2022-08-30] MEDS ORDERED: Atorvastatin Calcium 40 MG TAB PO SCH (21:00)
[2022-08-30] MEDS: Insulin Glargine 30 UNITS/0.3 ML VIAL SC SCH (21:49)
[2022-08-31] MEDS: HYDROcodone/Acetaminophen 5/325 mg Tablet PO PRN ×4 (01:16→21:22)
[2022-08-31] MEDS: Aspirin 81 mg Enteric Coated Tablet PO SCH (09:06)
[2022-08-31] MEDS: Atorvastatin Calcium 40 MG TAB PO SCH (09:06)
[2022-08-31] MEDS: Apixaban 5 MG TAB PO SCH ×2 (09:06→21:20)
[2022-08-31] MEDS ORDERED: Lisinopril 5 MG TAB PO SCH (16:15)
[2022-08-31] MEDS: Insulin Glargine 30 UNITS/0.3 ML VIAL SC SCH (21:20)
[2022-09-01] MEDS: HYDROcodone/Acetaminophen 5/325 mg Tablet PO PRN ×3 (04:47→20:36)
[2022-09-01 05:11] LABS: #Basophils 0.1 thou/uL (0.0-0.2); #Eosinphils 0.4 thou/uL (0.0-0.7); #Monocytes 0.9 thou/uL (0.11-0.59); #Neutrophils 6.3 thou/uL (1.40-6.50); %Basophils 1.1 % (0.0-1.0); %Eosinophils 3.3 % (0.0-10.0); %Lymphocytes 26.7 % (21.0-51.0); %Monocytes 8.2 % (0.0-10.0); %Neutrophils 60.1 % (42.0-75.0); Mean Corpuscular HGB CONC 34.6 g/dL (32.0-36.0); Mean Corpuscular Hemoglobin 30.3 pg (27.0-31.0); Mean Corpuscular Volume 87.7 fl (78.0-98.0); Mean Platelet Volume 9.2 fL (7.4-10.4); Platelet Count 280 10x3/uL (130-400); RBC Distribution Width 12.4 % (11.5-14.5); Red Blood Cell (RBC) Count 4.62 mill/uL (4.70-6.10); White Blood Cell (WBC) Count 10.6 10x3/uL (4.8-10.8)
[2022-09-01 05:35] LABS: Anion Gap 10 mmol/L (10-20); BUN (Urea Nitrogen) 15 mg/dL (8.4-25.7); Calc. Creatinine Clearance 133 mL/min (70-130); Calcium 9.1 mg/dL (7.8-10.44); Carbon Dioxide 25 mmol/L (22-29); Chloride 105 mmol/L (98-107); Estimated GFR 101; Glucose 95 mg/dL (70-105); Sodium 136 mmol/L (136-145)
[2022-09-01] MEDS: Apixaban 5 MG TAB PO SCH ×2 (09:36→20:36)
[2022-09-01] MEDS: Aspirin 81 mg Enteric Coated Tablet PO SCH (09:36)
[2022-09-01] MEDS: Atorvastatin Calcium 40 MG TAB PO SCH (09:36)
[2022-09-01] MEDS: Lisinopril 5 MG TAB PO SCH (09:37)
[2022-09-01] MEDS: Acetaminophen 325 MG TAB PO PRN (09:37)
[2022-09-01] MEDS ORDERED: Diazepam 10 MG/2 ML SYRINGE IVP SCH (13:00)
[2022-09-01] MEDS: Insulin Glargine 30 UNITS/0.3 ML VIAL SC SCH (20:38)
[2022-09-02 05:01] VITALS: BMI 30.2
[2022-09-02 05:36] LABS: #Basophils 0.2 thou/uL (0.0-0.2); #Eosinphils 0.4 thou/uL (0.0-0.7); #Monocytes 1.2 thou/uL (0.11-0.59); #Neutrophils 8.1 thou/uL (1.40-6.50); %Basophils 1.2 % (0.0-1.0); %Eosinophils 3.4 % (0.0-10.0); %Lymphocytes 22.8 % (21.0-51.0); %Neutrophils 62.8 % (42.0-75.0); Hemoglobin 14.1 g/dL (14.0-18.0); Mean Corpuscular HGB CONC 34.5 g/dL (32.0-36.0); Mean Corpuscular Hemoglobin 30.3 pg (27.0-31.0); Mean Platelet Volume 9.1 fL (7.4-10.4); Platelet Count 283 10x3/uL (130-400); RBC Distribution Width 12.4 % (11.5-14.5); Red Blood Cell (RBC) Count 4.65 mill/uL (4.70-6.10); White Blood Cell (WBC) Count 12.9 10x3/uL (4.8-10.8)
[2022-09-02 05:58] LABS: Anion Gap 10 mmol/L (10-20); BUN (Urea Nitrogen) 17 mg/dL (8.4-25.7); Calc. Creatinine Clearance 133 mL/min (70-130); Calcium 9.5 mg/dL (7.8-10.44); Carbon Dioxide 24 mmol/L (22-29); Chloride 106 mmol/L (98-107); Estimated GFR 102; Glucose 79 mg/dL (70-105); Sodium 136 mmol/L (136-145)
[2022-09-02] MEDS: HYDROcodone/Acetaminophen 5/325 mg Tablet PO PRN ×2 (06:20→12:51)
[2022-09-02] MEDS: Aspirin 81 mg Enteric Coated Tablet PO SCH (09:11)
[2022-09-02] MEDS: Lisinopril 5 MG TAB PO SCH (09:12)
[2022-09-02] MEDS: Apixaban 5 MG TAB PO SCH (09:12)
[2022-09-02] MEDS: Atorvastatin Calcium 40 MG TAB PO SCH (09:12)
[2022-09-02] MEDS: Acetaminophen 325 MG TAB PO PRN (09:13)
[2022-09-02 11:52] VITALS: TEMP 97.6
[2022-09-02 12:05] VITALS: BP 132/89
[2022-09-02] MEDS ORDERED: Diazepam 10 MG/2 ML SYRINGE IVP SCH (13:30)
== END 2022-09-02 14:47 | disposition home or self-care (01) | DRG 309 ==
LOC: ERS 19:03 → NEURO 22:14 → OBSVTOIN 08-30 12:55
PROVIDERS: ADMIT Internal Medicine; ATTEND Internal Medicine
DX: R00.1 Bradycardia, unspecified (principal); F11.20 Opioid dependence, uncomplicated; G81.94 Hemiplegia, unspecified affecting left nondominant side; I48.19 Other persistent atrial fibrillation; I25.10 Atherosclerotic heart disease of native coronary artery without angina pectoris; I10 Essential (primary) hypertension; E78.5 Hyperlipidemia, unspecified; E11.9 Type 2 diabetes mellitus without complications; J44.9 Chronic obstructive pulmonary disease, unspecified; J45.909 Unspecified asthma, uncomplicated; G89.29 Other chronic pain; F17.220 Nicotine dependence, chewing tobacco, uncomplicated; M25.562 Pain in left knee; T50.905A Adverse effect of unspecified drugs, medicaments and biological substances, initial encounter; Z79.4 Long term (current) use of insulin; Z95.1 Presence of aortocoronary bypass graft; Z98.890 Other specified postprocedural states; Z88.8 Allergy status to other drugs, medicaments and biological substances; Z79.01 Long term (current) use of anticoagulants; Z79.899 Other long term (current) drug therapy; I25.2 Old myocardial infarction
CPT/HCPCS: 36415; 36416; 70450; 70496; 70498; 71045; 80048; 80053; 80306; 80307; 81001; 82550; 83735; 84484; 85025; 85610; 85730; 93005; 93010; 96374; 96375; G0378; J1815; J1885; J2270; J2405; J3360; Q9967